=== PATIENT | female | born 1945 | race Caucasian/White ===

== ENCOUNTER 2016-12-04 05:41 | Inpatient (IN) | payer MEDICARE, SELFPAY ==
[~2016-12-04] VITALS: Ht 154.9 cm; Wt 77.9 kg
[2016-12-06] MEDS ORDERED: FOSAMAX70 MG PO (10:35)
[2016-12-06] MEDS ORDERED: CELEBREX200 MG PO (10:36)
[2016-12-06] MEDS ORDERED: MIRALAX PACKET17 GM PO (10:36)
[2016-12-06] MEDS ORDERED: ASPIRIN325 MG PO (10:36)
[2016-12-06] MEDS ORDERED: PROTONIX40 MG PO (10:36)
[2016-12-06] MEDS ORDERED: CALCIUM600 MG PO (10:36)
[2016-12-06] MEDS ORDERED: GLUCOPHAGE-DPS500 MG PO (10:36)
[2016-12-06] MEDS ORDERED: ULTRAM50 MG PO (10:37)
[2016-12-06] MEDS ORDERED: SENOKOT S1 TAB PO (10:37)
[2016-12-06] MEDS ORDERED: TYLENOL DPS325 MG PO (10:37)
[2016-12-06] MEDS ORDERED: OXY IR DPS5 MG PO (10:38)
--- NOTE | 2016-12-06 22:22 | OR ---
ADMIT: 12/04/2016 RM/LOC: 504 [facility] MR#: [id number] [address] [address] JEFF SERRALuis Manuel Awad [address] [place] [address] Operative/Delivery Room Report SEX: F AGE: 71 : 1945 SURGERY DATE: 12/04/2016 SURGEON: Librado Torres MD IMPLEMENTATION LEAD: 1. Jesus Ibarra PA-C. 2. BRIJESH Garcia. PREOPERATIVE DIAGNOSIS: Right hip degenerative joint disease. POSTOPERATIVE DIAGNOSIS: Right hip degenerative joint disease. PROCEDURES: 1. Right anterior total hip arthroplasty. 2. Intra-articular Exparel block. ANESTHESIA: COMPLICATIONS: None. ESTIMATED BLOOD LOSS: 150 mL. COMPONENTS: 1. A 50 mm Gription [place] cup. 2. Two acetabular screws. 3. A hole eliminator. 4. A 32 mm neutral AltrX liner. 5. A 12 mm a Coxa Vara Corail stem. 6. A 1 mm x 32 mm metal head. DESCRIPTION OF PROCEDURE: The patient was taken to the operating room. The correct hip was identified and marked in the preop holding area. The preoperative leg lengths were documented. The patient received a anesthetic. At that point, the patient had traction boots applied. The patient was placed on the CHANDLER operative table. A perfect fluoroscopic AP pelvis was obtained along with a perfect AP of the operative hip and printed for preoperative templating purposes. At that point, the right hip was prepped and draped in a standard fashion and an anterior approach was performed. An incision was made lateral and inferior to the anterior superior iliac spine extending distally. Dissection was carried through subcutaneous tissue down to the tensor fascia. The fibers of the tensor fascia were identified in oblique fashion. The tensor fascia was then opened up along its muscle fibers. An Allis clamp was placed on the anterior fascial border. The tensor muscle itself was then swept off with blunt dissection and retracted posteriorly. At that point, the rectus was elevated off the anterior hip capsule. The lateral circumflex vessels were identified and cauterized. A Cobra retractor was placed above the superior femoral neck to retract the tensor posteriorly. The rest of the rectus was elevated off the anterior hip capsule and a second retractor was placed around the medial femoral neck. An L-shaped capsulotomy was perfomed ADMIT: 12/04/2016 RM/LOC: 504 [facility] MR#: [id number] [address] [address] RIK SERRA [address] [place] [address] Operative/Delivery Room Report SEX: F AGE: 71 : 1945 through the hip capsule down to the intertrochanteric line and extended along the intertrochanteric line to the level of the lesser trochanter. Tag stitches were placed in the medial and lateral border of the hip capsule. We also released the superior hip capsule out of the trochanteric shoulder region. At that point, we placed our Cobra retractors in an intra-articular fashion for improved exposure to complete our capsular releases intra- articularly. A femoral neck cut was then made based on templating using the trochanteric shoulder as a bony landmark. We then externally rotated the hip 20 degrees for improved exposure and removed the femoral head from the acetabulum with no undue difficulty. Once the femoral head was removed, we again completed our capsular release around the inferior femoral neck to the level of lesser trochanter, released the superior capsule off the greater trochanteric shoulder in its entirety. We then placed slight traction on the femur in 20 degrees external rotation and placed a blunt-tip Cobra retractor over the anterior acetabular border. A second blunt Cobra was placed around the posterior acetabular border. All the remaining labrum was excised and a episiotomy performed to the inferior capsule to improve exposure. We cauterized the fovea and removed any remaining tissue in the depth of the acetabulum. We sequentially reamed the acetabulum under direct visualization up to a 49 mm size reamer. We elected to use a 50 mm size acetabular component. Then impacted a 50 mm Gription [place] cup. We put the acetabular component on a curved rate inserter and placed it within the depths of the acetabulum. At that point we removed all retractors; brought in fluoroscopy; and again obtained a perfect AP of the pelvis followed by a perfect AP of the hip. Under fluoroscopic guidance, we impacted the acetabular component in approximately 45 degrees of inclination and 20 degrees of anteversion. Two acetabular screws were now placed with good purchase. Any peripheral osteophytes were circumferentially removed around the acetabular component. A hole eliminator was placed in the acetabular component and a neutral 32-mm Neutral AltrX liner was impacted within the acetabular component. A partial intra-articular block with Exparel was performed at this point in time. Once our acetabular preparation was completed, all the acetabular retractors were removed. We then exposed the femur by rotating it into neutral position and taking all traction off the femur. A femoral elevating hook was placed posterior to the trochanteric ridge. The foot was dropped down to 45 degrees and the leg maximally externally rotated no undue tension. We made sure our inferior capsular release was complete and placed a #1 retractor over the tip of the trochanter. Any remaining capsule was released off the tip of the trochanter and the piriformis tendon and a conjoined tendon were also released for exposure. At that point, you could feel the femur give, and we were able to elevate it up and out of the wound. The femur was externally rotated to approximately 120 degrees and the foot dropped to the floor as the leg was adducted. The trochanteric elevating hook was manually pulled in the anterior lateral direction as the elevating bar was raised to support it. At that point, we had excellent femoral exposure. A Juliane retractor was placed over the tip of the trochanter and a femoral neck retractor around the medial calcar region to improve exposure. The proximal femur was opened with a box osteotome and a canal finder was used to identify ADMIT: 12/04/2016 RM/LOC: 504 [facility] MR#: [id number] [facility] [address] [place] [id number] RIK SERRA [address] [place] [address] Operative/Delivery Room Report SEX: F AGE: 71 : 1945 the femoral canal. The proximal femur was sequentially broached up to a 12 mm Corail broach. We did overream the distal canal to be sure we did not have a distal femoral fit. At that point, we left the broach in the canal and calcar planed the neck. We then reduced the hip with a Coxa Vara offset and 1 mm x 32-mm head. All the retractors and femoral hook were removed. Using manual traction, we were able to reduce the hip into the acetabulum with no undue difficulty. A perfect fluoroscopic AP of the pelvis followed by a perfect AP of the hip was obtained and appropriate leg length and offset were confirmed. We replaced our femoral elevating hook posterior to the trochanter. A bone hook and manual traction were used to dislocate the hip, again externally rotating the femur in its entirety as the foot was dropped to the floor and leg adducted. We removed the trial components, replaced a [place] retractor, and a femoral neck retractor. The broach was removed and the appropriate real components opened. We then impacted a size 12 mm Coxa Vara Corail stem down the femoral canal with excellent press-fit. We impacted a 1 x 32 mm metal head on the trunnion. All retractors were removed, using manual traction the hip was reduced, and again was found to be stable. A final fluoroscopic AP pelvis and AP hip was obtained to confirm appropriate leg length, offset, and component positioning. We then irrigated out the wounds thoroughly and repaired the anterior capsular structures with #5 Ti-Cron. Our intra- articular Exparel block was completed including all soft tissues. The tensor fascia was repaired with a running and interrupted 0 Vicryl suture. We closed subQ with 2-0 Vicryl and ran a subcuticular Monocryl stitch. A Prineo hip wound dressing was applied and sterile dressings applied. The patient was taken off the HANA table, transferred to a standard OR bed, and taken to the recovery room in stable condition with no complications. Librado Torres MD/ aniya JOB #: [id number] CC: Librado Torres, Attending Physician Niesha Pope, Family Physician
--- NOTE | 2016-12-11 07:27 | CO ---
ADMIT: 12/04/2016 RM/LOC: [facility] MR#: [id number] [address] [address] RIK SERRA [address] [place] [address] Consultation Report SEX: F AGE: 71 : 1945 DATE OF CONSULTATION: 11/24/2016 ATTENDING PHYSICIAN: Librado Torres CONSULTING PHYSICIAN: Niesha Pope MD She presents for surgical preop evaluation for planned right total hip arthrotomy to be performed on 12/04/2016, by Dr. Torres at [facility]. She has a past medical history of degenerative arthritis involving her hip as well as her knees. Known history of hypertension, diabetes, hyperlipidemia, which have been adequately controlled. Known history of osteoporosis. History of sacroiliitis, which has been treated with local steroid shots. Her general sense of health and well being is good. She plans for surgical intervention. SOCIAL HISTORY: She is employed. She does not smoke. She has two children. Does not drink alcohol. She is . FAMILY HISTORY: Positive for a brother with type 2 diabetes with cancer, mother had cancer, and sisters x2 have diabetes. ALLERGIES: SHE HAS NO KNOWN DRUG OR MEDICAL ALLERGIES. CURRENT MEDICATIONS: As follows. She is on; 1. Alendronate 70 mg 1 tablet p.o. weekly. 2. Aleve 220 mg 2 tablets b.i.d. 3. Ibuprofen 300 mg two tablets daily. 4. Metformin 1000 mg b.i.d. 5. Zocor 40 mg daily. PAST SURGICAL HISTORY: Her surgical history includes a breast biopsy in 2013 and a fractured wrist. REVIEW OF SYSTEMS: Her general sense of health is good. She has had SI joint injections performed with improvement of her low back pain. She has a history of hip and knee pain and presents for her total hip arthrotomy. She has had no anterior chest pain or chest pressure. No increasing shortness of breath or respiratory distress. Denies any changes in her bowel or bladder habits. Any melena, hematochezia, or peripheral edema. Denies any significant arthritic complaints beyond her knees and her hips. PHYSICAL EXAMINATION: GENERAL: She is alert, articulate. VITAL SIGNS: Blood pressure is 128/76, temp is 98.7, heart rate is 76, and weight is 168 pounds. HEENT: Normal. HEART: Regular rhythm without murmur or rub. ADMIT: 12/04/2016 RM/LOC: [facility] MR#: [id number] [address] [address] [facility] [address] Consultation Report SEX: F AGE: 71 : 1945 LUNGS: Clear, but diminished to auscultation. ABDOMEN: Soft, nontender, nondistended. EXTREMITIES: No evidence of edema. EKG shows normal sinus rhythm with borderline left axis deviation. Her other laboratory assessment; CBC and CMP within normal limits. At this time, I see no contraindications proceeding with surgery. I will follow her in the postop period. She will take aspirin 325 mg as prevention of DVT. In addition, she will have early ambulation. She will hold her nonsteroidals one week ahead of surgery as well as we will continue to monitor her blood sugars in the postop period. She, at this time, has no contraindications to proceeding with surgery. Niesha Pope MD/ aniya JOB #: [id number] CC: Librado Torres, Attending Physician UNKNOWN, Family Physician
--- NOTE | 2016-12-24 10:37 | HP ---
ADMIT: 12/04/2016 RM/LOC: [facility] MR#: [id number] [address] [address] RIK SERRA [address] [place] [address] Pre-OP History and Physical SEX: F AGE: 71 : 1945 DATE OF SERVICE: CHIEF COMPLAINT: Hip pain. HISTORY OF PRESENT ILLNESS: The patient is a 71-year-old female, longstanding history of hip pain. Right hip pain limits her activity. She has failed conservative care, now being admitted for right total hip arthroplasty. PAST MEDICAL HISTORY: Past medical problems include diabetes and osteoporosis. MEDICATIONS: Include: 1. Metformin. 2. Alendronate. ALLERGIES: NONE. SOCIAL HISTORY: Denies any significant tobacco or alcohol use. REVIEW OF SYSTEMS: Negative. PHYSICAL EXAMINATION: GENERAL: Healthy appearing female. MUSCULOSKELETAL: Walks with antalgic gait on the right lower extremity. Pain with any motion of her right hip. We can internally rotate to 10 degrees, externally rotate to 35, and flex to 100 reproducing her pain and symptoms. Her legs otherwise neurovascularly intact. No open sores or ulcers. DIAGNOSTIC DATA: X-rays AP and lateral shows advanced right hip arthritis, no joint space remaining, subchondral cystic changes. IMPRESSION: 1. Advanced right hip degenerative joint disease. 2. Diabetes. 3. Lumbar spondylosis. PLAN: We talked about different options. She has failed conservative care. Plan on doing a right anterior total hip arthroplasty. She is aware of the risks, benefits, and options and agreed to proceed. She has been seen and cleared by Dr. Pope. Librado Torres MD/ aniya JOB #: [id number] CC: Librado Torres, Attending Physician UNKNOWN, Family Physician
--- NOTE | 2016-12-24 10:37 | DS ---
ADMIT: 12/04/2016 RM/LOC: 504 [facility] MR#: [id number] [address] [address] RIK SERRA [address] [place] [id number] General Discharge Summary SEX: F AGE: 71 : 1945 ADMISSION DATE: 12/04/2016 DISCHARGE DATE: 12/05/2016 REASON FOR ADMISSION: Elective right total hip arthroplasty after failing conservative management for osteoarthritis. PREOPERATIVE DIAGNOSIS: Right hip degenerative joint disease. POSTOPERATIVE DIAGNOSIS: Right hip degenerative joint disease. PROCEDURE PERFORMED: Right anterior total hip arthroplasty with intraoperative Exparel block. ANESTHETIC: Spinal. COMPLICATIONS: None. ESTIMATED BLOOD LOSS: 150 mL. SURGEON: Librado Torres MD. ASSISTANTS: 1. Jesus Ibarra PA-C. 2. Amy Payne PA-C. ACTIVE MEDICAL PROBLEMS: Osteoarthritis, diabetes, lumbar spondylosis. HOSPITAL COURSE: Rik was admitted on 12/04/2016, for elective right total hip arthroplasty, was completed successfully by direct anterior approach by Dr. Torres. There were no complications. Postoperatively, she did well with pain control with use of intraoperative Exparel as well as oral analgesics. She participated well in Physical Therapy becoming proficient with her home exercise program. On postoperative day #1, she was up and moving around and walking. While she was safe, independent with her exercise, we planned to discharge home. She did as anticipated, experienced mild acute surgical blood- loss anemia with hemoglobin dropping to 10.0, but she remained hemodynamically stable, did not require transfusion. DISCHARGE MEDICATIONS: 1. Alendronate 70 mg every Sunday. 2. Metformin 1000 mg daily. 3. Calcium 600 mg daily. 4. Aspirin 325 mg daily. ADMIT: 12/04/2016 RM/LOC: 504 [facility] MR#: [id number] [address] [address] RIK SERRA [address] [place] [address] General Discharge Summary SEX: F AGE: 71 : 1945 5. Celebrex 200 mg b.i.d. 6. MiraLax daily. 7. Protonix 40 mg daily while on aspirin. 8. Senokot b.i.d. p.r.n. 9. Tylenol 650 mg q.6 p.r.n. 10.Ultram 50 mg one to two q.6 x3 days and then p.r.n. 11.OxyIR 5 mg one to two q.4 p.r.n. DISCHARGE INSTRUCTIONS: Rik will undergo a home exercise program per anterior total hip arthroplasty protocol. She will follow up in the Orthopedic office in 2 weeks for wound check, 6 weeks with x-rays. Follow up with primary care as directed. Jesus Ibarra PA-C / Librado Torres MD / aniya JOB #: [id number] CC: Librado Torres MD, Attending Physician Niesha Pope MD, Family Physician
== END 2016-12-05 16:00 | disposition home or self-care (01) | DRG 470 ==
LOC: WOR 05:41 → 5MS 05:41
PROVIDERS: ADMIT Orthopaedic Surgery
PROC: 0SR902A Replacement of Right Hip Joint with Metal on Polyethylene Synthetic Substitute, Uncemented, Open Approach (ICD-10-PCS; principal; 2016-12-04)
DX: M16.11 Unilateral primary osteoarthritis, right hip (principal); I10 Essential (primary) hypertension; D62 Acute posthemorrhagic anemia; E11.9 Type 2 diabetes mellitus without complications; M81.0 Age-related osteoporosis without current pathological fracture; M47.816 Spondylosis without myelopathy or radiculopathy, lumbar region; K21.9 Gastro-esophageal reflux disease without esophagitis; E78.5 Hyperlipidemia, unspecified; Z79.84 Long term (current) use of oral hypoglycemic drugs; Z86.718 Personal history of other venous thrombosis and embolism

== ENCOUNTER → 2017-03-21 | Outpatient (CLI) | payer MEDICARE ==
[~2017-03-21] MED LIST: ASPIRIN325 MG PO; CALCIUM600 MG PO; CELEBREX200 MG PO; FOSAMAX70 MG PO; GLUCOPHAGE-DPS500 MG PO; MIRALAX PACKET17 GM PO; OXY IR DPS5 MG PO; PROTONIX40 MG PO; SENOKOT S1 TAB PO; TYLENOL DPS325 MG PO; ULTRAM50 MG PO
== END | disposition home or self-care (01) ==
LOC: RAD.S 07:51
DX: Z12.31 Encounter for screening mammogram for malignant neoplasm of breast (principal)